=== PATIENT | female | born 1950 | race Caucasian/White ===

== ENCOUNTER 2016-04-06 08:53 | Outpatient (CLI) | payer OTHER ==
--- NOTE | 2016-04-06 12:24 | DIAGNOSTIC IMAGING REPORT ---
PROCEDURE: MG BILATERAL SCREENING W/CAD INDICATION: Screening. Family history of breast carcinoma (aunt). TECHNIQUE: Bilateral CC and MLO digital views. COMPARISON: Compared to 05/05/2005. FINDINGS: Computer-aided detection applied. Mildly to moderately dense and mildly nodular parenchymal pattern with a few dystrophic calcifications. There has been interval resolution of right subareolar nodular density. Findings suggest development of a 12 mm x 4 mm ovoid nodular density in the upper inner right breast (1230 position, middle third), and a 15 mm x 8 mm ovoid density with obscured margins in the upper outer right breast (1000 position, middle third). IMPRESSION: 1. Findings suggest development of a 12 mm ovoid density in the upper inner right breast, and a 15 mm ovoid density in the upper outer right breast. While these changes could represent normal asymmetric tissue, cysts or solid mass should also be considered. Further mammographic views (true lateral view, CC and MLO spot compression views are recommended). In addition, right breast ultrasound is recommended. RESULT CODE: 0- Incomplete; needs additional evaluation. A. A negative report should not delay biopsy if a dominant or clinically suspicious mass is present. 10-15% of cancers are not identified by x-ray. B. A negative report may reinforce clinical impression. C. Adenosis and dense breasts may obscure an underlying neoplasm. D. False positive reports average 6-10%. E.. A yearly screening mammogram is recommended. A reminder letter will be scheduled.
[2016-05-20] MEDS ORDERED: ATORVASTATIN CA40 MG PO (12:27)
[2016-05-20] MEDS ORDERED: AMLODIPINE BESY10 MG PO (12:27)
[2016-05-20] MEDS ORDERED: NEURONTIN300 MG PO (12:28)
[2016-05-20] MEDS ORDERED: FISH OIL1000 MG (12:28)
[2016-05-20] MEDS ORDERED: CYCLOBENZAPRINE10 MG PO (12:28)
[2016-05-20] MEDS ORDERED: LISINOPRIL/HCTZ PO (12:31)
[2016-05-20] MEDS ORDERED: METFORMIN HCL500 MG PO (12:32)
[2016-05-20] MEDS ORDERED: LORAZEPAM1 MG PO (12:32)
[2016-05-20] MEDS ORDERED: NORCO1 TAB PO (12:34)
== END 2016-04-06 23:00 ==
LOC: MAM SRH 08:53
DX: Z12.31 Encounter for screening mammogram for malignant neoplasm of breast (principal); Z80.3 Family history of malignant neoplasm of breast

== ENCOUNTER 2016-04-15 14:43 | Outpatient (CLI) | payer OTHER ==
--- NOTE | 2016-04-15 17:35 | DIAGNOSTIC IMAGING REPORT ---
PROCEDURE: MG UNILATERAL DIAG-RT W/CAD INDICATION: Follow-up nodular densities in the upper outer and central right breast TECHNIQUE: True lateral digital view of the right breast. addition, spot compression CC and MLO views were obtained of the upper outer and central right breast. breast (region of clinical concern). Finally, high-resolution right breast ultrasound was performed (18 mHz). COMPARISON: Comparison is made to screening mammogram studies on 04/06/2016 and 05/05/2005. FINDINGS: MAMMOGRAM: Computer-aided detection applied. There is asymmetric parenchyma in the upper outer right breast without focal abnormality. Confirmation of a 1.2 cm ovoid nodular density in the lateral central right breast BREAST ULTRASOUND: There is mildly heterogeneous parenchyma in the upper outer right breast without mass or cyst. There is no evidence of abnormality in the central right breast IMPRESSION: 1. Findings are consistent with normal asymmetric parenchyma in the upper outer right breast. 2. Findings are consistent with normal asymmetric parenchyma or normal intramammary lymph node in the central right breast. 3. While there is no evidence of underlying abnormality, early follow-up right mammogram and right breast ultrasound in 6 months is recommended to confirm stability. 4. Findings discussed with the patient. RESULT CODE: 3- Probably benign findings - initial short-interval follow-up suggested. A. A negative report should not delay biopsy if a dominant or clinically suspicious mass is present. 10-15% of cancers are not identified by x-ray. B. A negative report may reinforce clinical impression. C. Adenosis and dense breasts may obscure an underlying neoplasm. D. False positive reports average 6-10%. E.. A yearly screening mammogram is recommended. A reminder letter will be scheduled.
[2016-05-20] MEDS ORDERED: AMLODIPINE BESY10 MG PO (12:27)
[2016-05-20] MEDS ORDERED: ATORVASTATIN CA40 MG PO (12:27)
[2016-05-20] MEDS ORDERED: CYCLOBENZAPRINE10 MG PO (12:28)
[2016-05-20] MEDS ORDERED: NEURONTIN300 MG PO (12:28)
[2016-05-20] MEDS ORDERED: FISH OIL1000 MG (12:28)
[2016-05-20] MEDS ORDERED: LISINOPRIL/HCTZ PO (12:31)
[2016-05-20] MEDS ORDERED: LORAZEPAM1 MG PO (12:32)
[2016-05-20] MEDS ORDERED: METFORMIN HCL500 MG PO (12:32)
[2016-05-20] MEDS ORDERED: NORCO1 TAB PO (12:34)
== END 2016-04-15 23:00 ==
LOC: MAM SRH 14:43
DX: R92.2 Inconclusive mammogram (principal)